=== PATIENT | male | born 1955 | race Caucasian/White ===

== ENCOUNTER 2018-04-30 16:09 | Emergency (ER) | payer OTHER ==
[~2018-04-30] VITALS: Ht 182.9 cm; Wt 79.4 kg
[2018-04-30 16:58] VITALS: BP 152/84
--- NOTE | 2018-04-30 17:03 | PHYS DOC ---
Adult General Chief Complaint Chief Complaint: LACERATION/AVULSION HPI HPI Patient is a 62 year old male with history of sinus surgery who presents today with nose laceration. Patient states he was working with a chain saw when the safety part hit him in the nose. Patient denies any loss of consciousness. Patient states his tetanus is up-to-date. Patient denies bleeding through the inner nose Review of Systems Review of Systems Constitutional: Denies fever or chills [] Eyes: Denies change in visual acuity, redness, or eye pain [] HENT: Reports nose laceration. Denies nasal congestion or sore throat [] Musculoskeletal: Denies back pain or joint pain [] Neurologic: Denies headache, focal weakness or sensory changes [] All other systems were reviewed and found to be within normal limits, except as documented in this note. Current Medications Current Medications Current Medications Medications (Trade) Dose Ordered Sig/Darrell Start Time Stop Time Status Last Admin Dose Admin Ceftriaxone Sodium (Rocephin Im) 1 gm 1X ONCE 04/30/18 18:00 04/30/18 18:01 DC Lidocaine HCl (Xylocaine-Mpf 1% 2ml Vial) 2 ml 1X ONCE 04/30/18 18:00 04/30/18 18:01 DC Morphine Sulfate (Morphine Sulfate) 5 mg 1X ONCE 04/30/18 17:30 04/30/18 17:31 DC 04/30/18 17:32 5 MG Allergies Allergies Allergies Coded Allergies Type Severity Reaction Last Updated Verified No Known Drug Allergies 04/30/18 No Physical Exam Physical Exam Constitutional: Well developed, well nourished, no acute distress, non-toxic appearance. [] HENT: Normocephalic, atraumatic, bilateral external ears normal, oropharynx moist, no oral exudates, Exterior nose distal end with a laceration approximately 5 cm long, cartilage can be seen through the laceration. Laceration does not cut into the nose. Skin: Warm, dry, no erythema, no rash. [] Back: No tenderness, no CVA tenderness. [] Extremities: No tenderness, no cyanosis, no clubbing, ROM intact, no edema. [] Neurologic: Alert and oriented X 3, normal motor function, normal sensory function, no focal deficits noted. [] Psychologic: Affect normal, judgement normal, mood normal. [] Current Patient Data Vital Signs Vital Signs Date Time Temp Pulse Resp B/P (MAP) Pulse Ox O2 Delivery O2 Flow Rate FiO2 04/30/18 17:32 18 98 Room Air 04/30/18 16:58 98.4 88 152/84 (106) 98.4 EKG EKG [] Radiology/Procedures Radiology/Procedures []PROCEDURE: CT MAXILLOFACIAL WO CONTRAST CT MAXILLOFACIAL WO CONTRAST Indication: LAC TO NOSE BY CHAINSAW NO PREV NO CONTRAST Exposure: One or more of the following individualized dose reduction techniques were utilized for this examination: 1. Automated exposure control 2. Adjustment of the mA and/or kV according to patient size 3. Use of iterative reconstruction technique. Comparison: None are available. Contrast: None FACIAL BONES: Nasal bone: There is a small nondisplaced fracture of the left nasal bone. Orbital floors: Intact Bones: No acute fracture is identified. Visualized sinuses: Clear. Globes/Orbits: Unremarkable. Mandible/Maxilla: Unremarkable. Soft tissue: Unremarkable. Mild degenerative changes at the partially visualized upper cervical spine. IMPRESSION: Small nondisplaced fracture of the left nasal bone. Electronically signed by: Abhishek No MD (04/30/2018 5:14 PM) [facility] DICTATED and SIGNED BY: ABHISHEK NO MD DATE: 04/30/18 1710 Course & Med Decision Making Course & Med Decision Making Pertinent Labs and Imaging studies reviewed. (See chart for details) This is a 62-year-old male patient presented to the ED today with nose laceration, patient was hit by a safety bar on a chain saw he was working with. Tetanus is up-to-date. Rocephin was ordered in the ED. CT of maxillofacial was noted for small nondisplaced fracture of the left nasal bone. Patient needs plastics to fix laceration or ENT which we do not have at [facility] today Patient himself states he has preference for Dr. Jean ENT specialist at [facility] to close his laceration and fix his nose. 17:[address] mello on on-call for Dr. Jean he states they do not fix trauma patients with lacerations over the broken nose. Information was given to patient. We agreed on transferred to [facility]. 17:46 Spoke with transfer line, awaiting accepting physician. 18:04 Dr. Catherine accepted patient at [facility]. To be admitted in room [address] Louis also accessed patient's laceration Miranda Disclaimer Dragon Disclaimer This electronic medical record was generated, in whole or in part, using a voice recognition dictation system. Departure Departure Impression: Primary Impression: Nasal bone fracture Additional Impression: Laceration of nose Disposition: 05 TRANSFER OTHER Condition: STABLE Referrals: SHAILA BOWDEN DO (PCP) Patient Instructions: Nasal Fracture, [id number] Additional Instructions: You have open nasal bone fracture. Please drive directly to [facility], do not have anything to eat or drink on the way. Go through the main entrance. Admissions is on the left, go to the admissions office they will directly to room 5111 bed 1. Problem Qualifiers Primary Impression: Nasal bone fracture Encounter type: initial encounter Fracture type: open Qualified Codes: S02.2XXB - Fracture of nasal bones, initial encounter for open fracture Additional Impression: Laceration of nose Encounter type: initial encounter Qualified Codes: S01.21XA - Laceration without foreign body of nose, initial encounter ADAM HARPER APRN Apr 30, 2018 17:03
--- NOTE | 2018-04-30 17:17 | RAD ---
CT MAXILLOFACIAL WO CONTRAST Indication: LAC TO NOSE BY CHAINSAW NO PREV NO CONTRAST Exposure: One or more of the following individualized dose reduction techniques were utilized for this examination: 1. Automated exposure control 2. Adjustment of the mA and/or kV according to patient size 3. Use of iterative reconstruction technique. Comparison: None are available. Contrast: None FACIAL BONES: Nasal bone: There is a small nondisplaced fracture of the left nasal bone. Orbital floors: Intact Bones: No acute fracture is identified. Visualized sinuses: Clear. Globes/Orbits: Unremarkable. Mandible/Maxilla: Unremarkable. Soft tissue: Unremarkable. Mild degenerative changes at the partially visualized upper cervical spine. IMPRESSION: Small nondisplaced fracture of the left nasal bone. Electronically signed by: Abhishek No MD (04/30/2018 5:14 PM) [facility]
[2018-04-30] MEDS ORDERED: MORPHINE SULFATE 10 MG/ML VIAL. IM ONE (17:30)
[2018-04-30] MEDS ORDERED: cefTRIAXone IM 1 GM VIAL IM ONE (18:00)
[2018-04-30] MEDS ORDERED: LIDOCAINE 1% PF 2 ML VIAL. INJ ONE (18:00)
== END 2018-04-30 18:50 | disposition short-term general hospital (02) ==
LOC: ER 16:09
DX: S02.2XXB Fracture of nasal bones, initial encounter for open fracture (principal); W22.8XXA Striking against or struck by other objects, initial encounter; Y93.89 Activity, other specified; Y92.89 Other specified places as the place of occurrence of the external cause; Y99.0 Civilian activity done for income or pay
CPT/HCPCS: 70486; 96372; 99285; J2270